=== PATIENT | female | born 1940 | race Caucasian/White ===

== ENCOUNTER 2019-08-16 16:41 | Emergency (ER) | payer MEDICARE, OTHER ==
[2019-08-16] MEDS ORDERED: Diphtheria,Pertussis(Acell),Tetanus Vaccine 0.5 ML Syringe IM ONE (17:17)
[2019-08-16] MEDS ORDERED: Lidocaine 1% 10 ML MDV INJECT ONE (17:17)
--- NOTE | 2019-08-16 17:39 | EDM.PDOC ---
ED HPI GENERAL MEDICAL PROBLEM - General Chief Complaint: Laceration Stated Complaint: LEFT INDEX FINGER LAC Time Seen by Provider: 08/16/19 17:02 Source of Information: Reports: Patient, RN Notes Reviewed - History of Present Illness INITIAL COMMENTS - FREE TEXT/NARRATIVE: 78 year old female cut L distal index finger with a kitchen knife cutting some corn. No other injury. Last tetanus more than 10 yrs ago. Left Finger-Index Pain Score (Numeric/FACES): 2 - Related Data Allergies Allergy/AdvReac Type Severity Reaction Status Date / Time latex Allergy Itching Verified 08/16/19 17:03 Past Medical History Cardiovascular History: Reports: High Cholesterol, Hypertension Gastrointestinal History: Reports: Chronic Constipation - Past Surgical History HEENT Surgical History: Reports: Tonsillectomy Musculoskeletal Surgical History: Reports: Knee Replacement, Other (See Below) Other Musculoskeletal Surgeries/Procedures:: back surgery Social & Family History - Tobacco Use Smoking Status *Q: Never Smoker - Caffeine Use Caffeine Use: Reports: Coffee - Recreational Drug Use Recreational Drug Use: No ED ROS GENERAL - Review of Systems Review Of Systems: See Below HEENT: Reports: No Symptoms Respiratory: Reports: No Symptoms Cardiovascular: Reports: No Symptoms GI/Abdominal: Reports: No Symptoms ED EXAM, SKIN/RASH Exam: See Below General Appearance: Alert, No Apparent Distress Head: Atraumatic Neck: Supple Respiratory/Chest: No Respiratory Distress Extremities: Other (1,5 cm lac distal radial aspect of L index finger, good rom and strength all joints) Neurological: No Motor/Sensory Deficits Course - Vital Signs Last Recorded V/S: Last Vital Signs Temp 97.6 F 08/16/19 17:06 Pulse 69 08/16/19 17:06 Resp 20 08/16/19 17:06 BP 149/69 H 08/16/19 17:06 Pulse Ox 96 08/16/19 17:06 - Orders/Labs/Meds Orders: Active Orders 24 hr Category Date Time Status Vaccines to be Administered [RC] PER UNIT ROUTINE Care 08/16/19 17:17 Active Meds: Medications Discontinued Medications Generic Name Dose Route Start Last Admin Trade Name Freq PRN Reason Stop Dose Admin Diphtheria/Tetanus/Acell Pertussis 0.5 ml 08/16/19 17:17 08/16/19 17:27 Adacel IM 08/16/19 17:18 0.5 ml .ONCE ONE Administration Lidocaine HCl 10 ml 08/16/19 17:17 08/16/19 17:27 Xylocaine 1% INJECT 08/16/19 17:18 10 ml ONETIME ONE Administration - Re-Assessments/Exams Free Text/Narrative Re-Assessment/Exam: 08/16/19 17:44 1.5 cm lac L distal index finger, anesth. with 1 % lidocaine, irrigated with NS , 4 3-0 ethilon sutures Departure - Departure Time of Disposition: 17:38 Disposition: Home, Self-Care 01 Condition: Fair Clinical Impression: Finger laceration Qualifiers: Encounter type: initial encounter Finger: index finger Damage to nail status: without damage Foreign body presence: without foreign body Laterality: left Qualified Code(s): S61.211A - Laceration without foreign body of left index finger without damage to nail, initial encounter - Discharge Information Forms: ED Department Discharge Additional Instructions: laceration instructions. Stitches out in about 10 days. You may have those removed at our [facility], call [phone] for appt. - My Orders Last 24 Hours: My Active Orders 08/16/19 17:17 Vaccines to be Administered [RC] PER UNIT ROUTINE - Assessment/Plan Last 24 Hours: My Active Orders 08/16/19 17:17 Vaccines to be Administered [RC] PER UNIT ROUTINE
== END 2019-08-16 17:45 | disposition home or self-care (01) ==
LOC: JD.ED 16:41
DX: S61.211A Laceration without foreign body of left index finger without damage to nail, initial encounter (principal); Z23 Encounter for immunization; I10 Essential (primary) hypertension; E78.00 Pure hypercholesterolemia, unspecified; Z91.040 Latex allergy status; W26.0XXA Contact with knife, initial encounter
CPT/HCPCS: 12001; 90471; 90700; 99283; J2001; 99282